=== PATIENT | male | born 1940 | race Caucasian/White ===

== ENCOUNTER 2017-11-07 18:08 | Inpatient (IN) | payer OTHER, BC ==
[~2017-11-07] VITALS: Ht 170.2 cm; Wt 72.6 kg
[2017-11-07 18:31] VITALS: BP 146/96
[2017-11-07] MEDS ORDERED: PRILOSEC 20 MG20 MG PO (18:36)
[2017-11-07] MEDS ORDERED: ALLEGRA ALLERG180 MG PO (18:36)
[2017-11-07 18:50] LABS: URINE BILIRUBIN NEGATIVE (Negative); URINE BLOOD 2+ (Negative); URINE CLARITY CLEAR; URINE COLOR YELLOW; URINE GLUCOSE-RANDOM* NEGATIVE (Negative); URINE KETONES NEGATIVE (Negative); URINE LEUKOCYTES-REFLEX NEGATIVE (Negative); URINE NITRITE-REFLEX NEGATIVE (Negative); URINE PROTEIN (DIPSTICK) NEGATIVE (Negative); URINE SPECIFIC GRAVITY >= 1.030 (1.005-1.035); URINE UROBILINOGEN 0.2 E.U./dl (0.2-1.0)
[2017-11-07 18:58] LABS: SQUAMOUS None Seen /LPF (0-3); URINE WBC-REFLEX 0-5 Rare /HPF (0-5)
[2017-11-07 18:59] LABS: BACTERIA-REFLEX 1-9 Few /HPF (None Seen); CASTS None Seen /LPF (None Seen); CRYSTALS None Seen /LPF (None Seen); YEAST-REFLEX Present (None Seen)
[2017-11-07 18:59] LABS: BASOPHILS 0.4 % (0.0-2.0); EOSINOPHILS 0.3 % (0.0-3.0); HEMATOCRIT 45.7 % (42.0-52.0); HEMOGLOBIN 15.9 gm/dL (14.0-18.0); LYMPHOCYTES 8.2 % (24.0-44.0); MCH 31.9 pg (26.0-34.0); MCHC 34.9 g/dL (28.0-37.0); MCV 91.5 fL (80.0-100.0); MONOCYTES 6.8 % (1.0-8.0); PLATELET COUNT 214 thou/uL (150-400); POLYS 84.3 % (36.0-66.0); RBC 4.99 mil/uL (4.50-6.00); RDW 13.9 % (10.5-14.5)
[2017-11-07 19:15] LABS: CALCIUM 9.2 mg/dL (8.5-10.1); CREATININE 1.8 mg/dL (0.7-1.3)
[2017-11-07 20:09] VITALS: BP 136/78
[2017-11-07 21:01] VITALS: BP 133/76
[2017-11-08 03:46] VITALS: BP 161/84
[2017-11-08 03:57] VITALS: BP 135/84
[2017-11-08 06:02] LABS: HEMATOCRIT 40.8 % (42.0-52.0); HEMOGLOBIN 14.2 gm/dL (14.0-18.0); MCH 31.8 pg (26.0-34.0); MCHC 34.7 g/dL (28.0-37.0); MCV 91.6 fL (80.0-100.0); RBC 4.45 mil/uL (4.50-6.00); RDW 13.8 % (10.5-14.5); WBC 10.6 thou/uL (4.0-11.0)
[2017-11-08 06:09] LABS: CALCIUM 8.7 mg/dL (8.5-10.1); CREATININE 1.6 mg/dL (0.7-1.3); POTASSIUM 3.9 mmol/L (3.5-5.1)
[2017-11-08 07:30] VITALS: BP 143/81
[2017-11-08 15:25] VITALS: BP 166/84
[2017-11-08] MEDS ORDERED: FLOMAX0.4 MG PO (15:59)
[2017-11-08] MEDS ORDERED: CIPRO500 MG PO (15:59)
[2017-11-08] MEDS ORDERED: HYDROCODON-ACE1 EAC7 PO (16:00)
[2017-11-08 16:08] VITALS: BP 166/84
== END 2017-11-08 16:09 | disposition home or self-care (01) | DRG 693 ==
LOC: ER 18:08 → 4E 19:32 → EROBS 19:32 → 4E 20:42
PROVIDERS: Emergency Medicine; Nurse Practitioner Family
DX: N13.2 Hydronephrosis with renal and ureteral calculous obstruction (principal); E43 Unspecified severe protein-calorie malnutrition; N17.9 Acute kidney failure, unspecified; K21.9 Gastro-esophageal reflux disease without esophagitis; I10 Essential (primary) hypertension; J30.9 Allergic rhinitis, unspecified; Z90.49 Acquired absence of other specified parts of digestive tract
CPT/HCPCS: 10084